=== PATIENT | female | born 1950 | race Caucasian/White ===

== ENCOUNTER → 2019-07-22 10:22 | Outpatient (CLI) | payer MEDICARE, BC ==
--- NOTE | 2019-07-23 15:34 | EC ---
PATIENT:AMIRA PEREYRA DATE OF SERVICE: 07/22/19 SEX: F MEDICAL RECORD: [id number] DATE OF : 54 [facility] AGE OF PATIENT: 68 ADMISSION DATE: 07/22/19 REFERRING PHYSICIAN: INTERPRETING PHYSICIAN: RANDI JACKSON MD ECHOCARDIOGRAM REPORT ECHO CHARGES 4 ECHO COMPLETE Date: 07/22/19 CLINICAL DIAGNOSIS: HTN/DYSPNEA ON EXERTION/ANGINA ECHOCARDIOGRAPHIC MEASUREMENTS (adult normal given) AC root (d.<3.7cm) 3.6 cm LV Septum d (<1.2 cm> 1.2 cm Valve Excursion 1.7 cm LV Septum (systole) 1.4 cm Left Atria (s.<4.0cm> 3.0 cm LVPW d(<1.2cm) 1.4 cm RV (d.<2.3cm) 3.4 cm LVPW (sytole) 1.8 cm LV diastole(<5.6CM) 3.9 cm MV E-F(>70mm/sec) cm LV systole 2.9 cm LVOT Diameter 1.6 cm MV exc.(>10mm) 1.4 cm Est.ejection fraction (50-75%) % DOPPLER: LVIT cm/sec A 830. cm/sec E 72.0 cm/sec LA cm/sec RVSP 20 mmHg LVOT 109 cm/sec AOP1/2T m/s Asc. Ao 129 cm/sec RVOT 60 cm/sec RA cm/sec PA 105 cm/sec AV Gradient Peak 6.68 mmHg AV Mean 3.58 mmHg AV Area 1.9 cm MV Gradient Peak 4.25 mmHg MV Mean 1.62 mmHg MV Area cm COMMENTS: Vehicle Care Specialist: Isabella MORAES Ripsaw Operator: 1 Dr. Jackson TAPE# PACS Pericardial Effusion N DATE OF SERVICE: 07/22/2019 ECHOCARDIOGRAM FINDINGS: 1. Left ventricular chamber size is within normal limits. Left ventricular systolic function is normal at 55% to 60%. 2. Left atrium, right atrium, and right ventricular chamber sizes are within normal limits. 3. Valvular structures have normal structure and motion. ECHOCARDIOGRAM REPORT [id number] AMIRA PEREYRA 4. Doppler interrogation reveals mild mitral regurgitation, trace tricuspid regurgitation, no other valvular insufficiency or stenosis. Pulmonary systolic pressure is normal estimated at 20 mmHg. 5. No evidence of pericardial effusion or left ventricular thrombus. TRANSINT:[id number] Voice Confirmation ID: [id number] DOCUMENT ID: [id number] RANDI JACKSON MD at 1534 CC: [id number] DICTATION DATE: 07/22/19 161 GLOBAL MARKETING OPERATIONS MANAGER: 07/22/19 1621 DEP CLI 07/22/19 [facility] [address] [place] [id number]
== END | disposition home or self-care (01) ==
LOC: D.HCCECHO 10:22
PROVIDERS: ATTEND Internal Medicine Interventional Cardiology
DX: I10 Essential (primary) hypertension (principal)

== ENCOUNTER → 2019-07-26 11:55 | Outpatient (CLI) | payer MEDICARE, BC ==
[~2019-07-26 11:55] MED LIST: AMBIEN10 MG PO; BAYER CHEWABLE81 MG PO; FAMOTIDINE10 MG PO; HYDROCHLOROTH12.5 M1 PO; LOPRESSOR25 MG PO; PLAVIX75 MG PO
--- NOTE | 2019-08-03 13:38 | ST ---
PATIENT:AMIRA PEREYRA MEDICAL RECORD: [id number] SEX: F LOCATION:[facility] ORDER #: ADMISSION DATE: 07/26/19 AGE OF PATIENT: 68 REFERRING PHYSICIAN: INTERPRETING PHYSICIAN: RANDI SAMANIEGO MD DATE OF SERVICE: 07/26/2019 INDICATIONS: Angina, hypertension, shortness of breath. She was exercised on standard Tu protocol for 9 minutes achieving greater than 85% max target heart rate response with 27 mCi of sestamibi injected at peak stress, 9 mCi used previously for rest images. FINDINGS: Gated SPECT reveals preserved ejection fraction at 83% with good wall motioning and thickening and brightening throughout all segments. SPECT Imaging: Cardiolite was used as myocardial perfusion agent. There is reversible ischemia inferiorly and apically. This includes the basal, mid, apical inferior segments as well as the apex itself. The degree of reversibility is moderate. The amount of myocardial involved is moderate. OVERALL IMPRESSION: 1. This is an intermediate to high risk nuclear stress test with a moderate amount of myocardium involved with ischemic changes inferiorly and apically. 2. Gated SPECT reveals preserved ejection fraction greater than 80%. In this patient with ongoing symptomatology, the current scan does suggest presence of hemodynamically significant coronary artery disease. TRANSINT:[id number] Voice Confirmation ID: [id number] DOCUMENT ID: [id number] RANDI SAMANIEGO MD at 1338 CC: LOREN GALVIN V [id number] DICTATION DATE: 07/27/19 1712 ELECTRON BEAM PHOTO MASK MAKER: 07/28/19 0102 DEP CLI 07/26/19 [place] [id number] [place] [id number]
[2019-08-04 09:45] VITALS: BMI 26.6
== END | disposition home or self-care (01) ==
LOC: D.HCCARDIO 11:55
PROVIDERS: ATTEND Internal Medicine Interventional Cardiology
DX: R07.9 Chest pain, unspecified (principal)

== ENCOUNTER 2019-08-04 09:14 | Outpatient (CLI) | payer MEDICARE, BC ==
[~2019-08-04] VITALS: Ht 157.5 cm; Wt 65.9 kg
--- NOTE | ~2019-08-04 | HEMODYNAMI ---
PATIENT:AMIRA PEREYRA MEDICAL RECORD: [id number] : 54 LOCATION:[facility] ADMISSION DATE: 08/04/19 Generatedon:08/04/201911:29 Patient name: AMIRA PEREYRA Patient #: [id number] : 1950 Date of study: 08/04/2019 Page: Of Hemodynamic Procedure Report Patient Data Patient Demographics Procedure consent was obtained First Name: AMIRA Gender: Female Last Name: RODDY : 1950 Patient #: [id number] Age: 68 year(s) Race: SSN: [id number] Additional ID: [id number] Contact details [address]: [address] [place] [address] [place] State: [place] City: [place] Zip code: [address] Admission Admission Data Admission Date: 08/04/2019 Admission Time: 9:14 Arrival Date: 08/04/2019 Arrival Time: 11:00 Admit Source: Other Insurance Payor: Medicare Height (in.): 62 BSA: 1.67 (m2) Height (cm.): 157.48 BMI: 26.52 (kg/m2) Weight (lbs.): 145 Weight (kg.): 65.77 Procedure Procedure Types Cath Procedure Diagnostic Procedure [facility] w/Coronaries FFR/IVUS FFR Initial Sedation Charges Moderate Sedation up to 30 minutes PCI Procedure Coronary Stent Coronary Stent Initial Procedure Description Procedure Date Procedure Date: 08/04/2019 Procedure Start Time: 11:08 Procedure End Time: 11:23 Procedure Staff Name Function Anderson Jackson MD Performing Physician Ting Lambert RT Monitor Thierry Peterson RT Scrub Jigar Bermudez RN Nurse Procedure Data Cath Procedure Fluoroscopy Diagnostic fluoroscopy Total fluoroscopy Time: 4.7 time: 4.7 min min Diagnostic fluoroscopy Total fluoroscopy dose: 517 dose: 517 mGy mGy Contrast Material Contrast Material Type Amount (ml) Isovue 300 105 Entry Location Entry Primary Successful Side Size Upsize Upsize Entry Closure Loredo ccessful Closure Location (Fr) 1 (Fr) 2 (Fr) Remarks Device Remarks Radial Right 6 Fr Mechanical artery Short Compression Estimated blood loss: 5 ml Diagnostic catheters Device Type Used For End Catheter Placement DIAGNOSTIC [place] 110cm 5 Multi-vessel Fr catheter ([id number]) Angiography Procedure Complications No complications Procedure Medications Medication Administration Route Dosage 0.9% NaCl I.V. 100 ml/hr Oxygen etCO2 Nasal cannula 2 l/min Heparin Flush Bag added to field 2 bags (1000units/500ml NS) Lidocaine 2% added to field 20 Radial Cocktail added to field 1 syringe (Verapamil 2mg/Nitro 400mcg/Heparin 1500units) Zofran I.V. 4 mg Solumedrol I.V. 125 mg Versed I.V. 1 mg Fentanyl I.V. 50 mcg Fentanyl I.V. 50 mcg Versed I.V. 1 mg Radial Cocktail I.A. 1 syringe (Verapamil 2mg/Nitro 400mcg/Heparin 1500units) Heparin Bolus I.V. 4000 units Integrilin (Bolus I.V. 6.2 ml 2mg/ml) Integrilin (Bolus wasted 3.8 ml 2mg/ml) Plavix P.O. 600 mg Hemodynamics Rest BSA: 1.67 (m2) O2 Consumption: Estimated: 154.67 (ml/min) O2 Consumption indexed : Estimated:92.62 (ml/min/m) Heart Rate: 69 (bpm) Pressure Samples Time Site Value (mmHg) Purpose Heart Use Rate(bpm) 11:10 LV 81/43,60 Snapshot 81 Snapshots Pre Cath Intra NCS Post Cath Vital Signs Time Heart Resp SPO2 etCO2 NIBP (mmHg) Rhythm Pain Sedation Rate (ipm) (%) (mmHg) Status Level (bpm) 10:45:26 68 10 98 0 124/83(105) NSR 0 (11) 10(A) , No pain 10:49:34 67 15 95 0 134/71(119) NSR 0 (11) 10(A) , No pain 10:53:44 64 17 94 26.9 115/71(91) NSR 0 (11) 10(A) , No pain 10:57:48 58 19 97 16.4 129/75(93) NSR 0 (11) 10(A) , No pain 11:02:00 57 18 98 17.9 120/64(102) NSR 0 (11) 10(A) , No pain 11:07:13 61 18 98 23.9 118/63(80) NSR 0 (11) 9(A) , No pain 11:12:22 74 14 94 15.7 99/63(91) NSR 0 (11) 9(A) , No pain 11:16:14 76 13 91 0 112/89(99) NSR 0 (11) 9(A) , No pain 11:21:09 73 19 95 29.1 112/72(99) NSR 0 (11) 10(A) , No pain Medications Time Medication Route Dose Verified Delivered Reason Not es Effectiveness by by 10:56:33 0.9% NaCl I.V. 100 Jigar Jigar Per physician ml/hr Lara Bermudez RN RN 10:56:42 Oxygen etCO2 2 l/min Jigar Jigar for low 02 sats Nasal Lorigan Lara cannula RN RN 10:56:52 Heparin Flush added 2 bags Jigar Jigar used for Bag to Lorigan Lara procedure (1000units/500ml field VALLES RN NS) 10:57:05 Lidocaine 2% added 20ml Jigar Jigar for local to vial Lorigan Lorigan anesthetic field VALLES RN 10:57:22 Radial Cocktail added 1 Jigar Jigar used for (Verapamil to syringe Lorigan Lorigan procedure 2mg/Nitro RN RN 400mcg/Heparin 1500units) 10:57:38 Zofran I.V. 4 mg Jigar Jigar for nausea Lara Bermudez RN RN 10:58:01 Solumedrol I.V. 125 mg Jigar Jigar Per physician Lara Bermudez RN RN 11:01:50 Versed I.V. 1 mg Jigar Jigar for sedation Lara Bermudez RN RN 11:01:59 Fentanyl I.V. 50 mcg Jigar Jigar for sedation Lara Bermudez RN RN 11:07:32 Fentanyl I.V. 50 mcg Jigar Jigar for sedation Lara Bermudez RN RN 11:07:39 Versed I.V. 1 mg Jigar Jigar for sedation Lara Bermudez RN RN 11:09:20 Radial Cocktail I.A. 1 Jigar Anderson for (Verapamil syringe Lara Jackson MD vasodilation 2mg/Nitro RN 400mcg/Heparin 1500units) 11:17:39 Heparin Bolus I.V. 4000 Jigar Jigar for units Lara Lara anticoagulation RN RN 11:17:56 Integrilin I.V. 6.2 ml Jigar Jigar for (Bolus 2mg/ml) Lara Lara antiplatelet RN RN therapy 11:18:31 Integrilin wasted 3.8 ml Jigar Jigar to sharp's (Bolus 2mg/ml) Lara Bermudez RN RN 11:24:17 Plavix P.O. 600 mg Jigar Jigar for Ashwiniphuc Bermudez antiplatelet RN RN therapy Procedure Log Time Note 10:25:50 Thierry Peterson RT(R) sent for patient. Start room use. 10:34:57 Diagnostic Cath Status : Elective 10:35:35 Informed consent obtained and on chart 10:35:56 Time tracking: Regular hours (M-F 7:00 - 5:00) 10:36:01 Plan of Care:Hemodynamics will remain stable., Cardiac rhythm will remain stable., Comfort level will be maintained., Respiratory function will remain adequate., Patient/ family verbilizes understanding of procedure., Procedure tolerated without complication., Recovers from procedure without complications.. 10:36:05 Patient received from Pre/Post Procedure Room to CCL 2 Alert and oriented. Tansferred to table in Supine position. 10:36:06 Warm blankets applied, and ashwini hugger turned on for patient comfort. 10:36:06 Correct patient and procedure confirmed by team. 10:36:07 ECG and BP/O2 sat monitors applied to patient. 10:44:18 Vital chart was started 10:44:19 Baseline sample Acquired. 10:44:23 Rhythm: sinus rhythm 10:44:25 Full Disclosure recording started 10:44:29 H&P Date Dictated: 08/04/2019 Within 30 days and on chart., H&P Addendum completed by physician on day of procedure. (MUST COMPLETE FOR ALL OUTPATIENTS). 10:44:31 Pre-procedure instructions explained to patient. 10:44:31 Pre-op teaching completed and patient verbalized understanding. 10:44:33 Family in waiting room. 10:44:35 Patient NPO since Midnight. 10:44:37 Is the patient allergic to Iodine/contrast media? No. 10:44:38 Was the patient premedicated? No 10:45:01 Is patient on blood thinner?No 10:45:14 Patient diabetic? No. 10:45:19 Previous problem with sedation/anesthesia? Yes nausea 10:45:20 Snore? Yes 10:45:21 Sleep apnea? Yes 10:45:22 Deviated septum? No 10:45:23 Opens mouth fully? Yes 10:45:24 Sticks out tongue? Yes 10:45:28 Airway obstruction? Yes asthma 10:45:31 Dentures? No ? 10:45:36 Pre procedure: right dorsailis pedis pulse 2+ Normal; easily identifiable; not easily obliterated 10:45:38 Pre procedure: left dorsailis pedis pulse 2+ Normal; easily identifiable; not easily obliterated 10:47:33 Patient pain scale 0/10 ?. 10:47:49 IV patent on arrival in left forearm with 0.9% NaCl at [facility]. 10:47:52 Lab results completed and on chart. 10:48:04 Right Radial & Right Groin area was prepped with chlora-prep and draped in sterile fashion 10:48:04 Alarms reviewed by R. N. 10:48:05 Sharps counted by scrub and verified by R.N. 10:56:33 0.9% NaCl 100 ml/hr I.V. was administered by Jigar Bermudez RN; Per physician; Verbal order read back and verified. 10:56:42 Oxygen 2 l/min etCO2 Nasal cannula was administered by Jigar Bermudez RN; for low 02 sats; Verbal order read back and verified. 10:56:52 Heparin Flush Bag (1000units/500ml NS) 2 bags added to field was administered by Jigar Bermudez RN; used for procedure; Verbal order read back and verified. 10:57:05 Lidocaine 2% 20ml vial added to field was administered by Jigar Bermudez RN; for local anesthetic; Verbal order read back and verified. 10:57:22 Radial Cocktail (Verapamil 2mg/Nitro 400mcg/Heparin 1500units) 1 syringe added to field was administered by Jigar Bermudez RN; used for procedure; Verbal order read back and verified. 10:57:38 Zofran 4 mg I.V. was administered by Jigar Bermudez RN; for nausea; Verbal order read back and verified. 10:58:01 Solumedrol 125 mg I.V. was administered by Jigar Bermudez RN; Per physician; Verbal order read back and verified. 11:01:14 Physician arrived 11:01:15 --------ALL STOP TIME OUT------ 11:01:15 Final Timeout: patient, procedure, and site verified with staff and physician. All members of the team are in agreement. 11:01:18 Right Radial & Right Groin site verified by team. 11:01:23 Fire Safety Assessment: A--An alcohol-based skin anteseptic being used preoperatively., C--Open oxygen or nitrous oxide is being used., D--An ESU, laser, or fiber-optic light is being used. 11:01:25 Physical assessment completed. ASA score P 2 - A patient with mild systemic disease as per Anderson Jackson MD. 11:01:50 Versed 1 mg I.V. was administered by Jigar Bermudez RN; for sedation; Verbal order read back and verified. 11:01:59 Fentanyl 50 mcg I.V. was administered by Jigar Bermudez RN; for sedation; Verbal order read back and verified. 11:03:11 2) 60-89 Mildly reduced kidney function, and other findings (as for stage 1) point to kidney disease. 11:03:31 Maximum allowable contrast dose (3.7 X eGFR X 0.75)183 ml. 11:03:34 Sedation plan: IV Moderate Sedation Medication:Versed, Fentanyl 11:03:38 Use device set Radial Dx or PCI 11:03:39 ACIST Syringe (12281) opened to sterile field. 11:03:39 Medline Cath Pack ([id number]) opened to sterile field. 11:03:39 Bag Decanter () opened to sterile field. 11:03:40 ACIST Hand Control (97317) opened to sterile field. 11:03:40 ACIST Manifold (27720) opened to sterile field. 11:03:41 Tegaderm 4 x 4 (1626W) opened to sterile field. 11:03:43 MBrace Wrist Support ([id number]) opened to sterile field. 11:03:45 SHEATH 6FR RAIN (7639928) opened to sterile field. 11:03:46 EMERALD Guide Wire (345-695) opened to sterile field. 11:07:12 Patient Height : 62 inches 11:07:24 Patient Weight : 145 lbs 11:07:32 Fentanyl 50 mcg I.V. was administered by Jigar Bermudez RN; for sedation; Verbal order read back and verified. 11:07:39 Versed 1 mg I.V. was administered by Jigar Bermudez RN; for sedation; Verbal order read back and verified. 11:08:12 Procedure started. 11:08:16 Zero performed for pressure channel P1 11:08:25 Local anesthetic to right radial artery with Lidocaine 2% by Anderson Jackson MD.INITIAL ACCESS ONLY 11:08:40 A 6 Fr Short sheath was inserted into the Right Radial artery 11:09:01 A DIAGNOSTIC [place] 110cm 5 Fr catheter (331554) was advanced over the wire and used for Multi-vessel Angiography. 11:09:20 Radial Cocktail (Verapamil 2mg/Nitro 400mcg/Heparin 1500units) 1 syringe I.A. was administered by Anderson Jackson MD; for vasodilation; Verbal order read back and verified. 11:10:17 LV hemodynamics recorded. 11:10:18 LV gram done using VU 11:10:21 Injector settings: Ml/sec: 5, Volume: 15, 11:10:30 EF : 60 % 11:10:36 LCA angiography performed. 11:10:39 Injector settings: Ml/sec: 3, Volume: 6, 11:11:48 RCA angiography performed. 11:11:50 Injector settings: Ml/sec: 3, Volume: 6, 11:11:54 Catheter removed. 11:11:55 ACCDominant side:Right 11:11:55 Proceeding to intervention. 11:12:26 GUIDE 6FR EBU 3.0 catheter ([id number]) opened to sterile field. 11:12:28 INFLATOR Merit BasixCompak (LA9083) opened to sterile field. 11:12:28 [place] Verrata Plus pressure wire (88838P) opened to sterile field. 11:12:38 6 Fr ebu 3 guide catheter was inserted over the wire 11:12:41 ACC Pre-intervention YARIEL Flow is 3. 11:13:27 FFR/IFR wire advanced. 11:13:31 Baseline FFR 1. 11:15:28 Wire advanced across lesion. 11:17:39 Heparin Bolus 4000 units I.V. was administered by Jigar Bermudez RN; for anticoagulation; Verbal order read back and verified. 11:17:56 Integrilin (Bolus 2mg/ml) 6.2 ml I.V. was administered by Jigar Bermudez RN; for antiplatelet therapy; Verbal order read back and verified. 11:18:31 Integrilin (Bolus 2mg/ml) 3.8 ml wasted was administered by Jigar Bermudez RN; to sharp's; Verbal order read back and verified. 11:19:31 pLAD lesion measured at 0.86 with IFR 11:19:32 Pre PCI Site: [place] pLAD has 70% stenosis. 11:19:37 Place stent Inflation Number: 1 A COBRA RX 3.0 X 08 Stent was prepped and advanced across the Prox LAD 70. The stent was deployed at 13 JAZLYN for 0:10 (min:sec) . 11:19:53 Stent catheter was removed intact over wire. 11:20:00 ZEPHYR REGULAR TR BAND (987485) opened to sterile field. 11:20:29 pLAD lesion measured at 1.05 with IFR 11:21:33 Post PCI Site: [place] pLAD has 0% stenosis. 11:21:47 ACC Post-intervention YARIEL Flow is 3. 11:21:50 ACT drawn and resulted at 267 seconds. (normal therapeutic range 180-240 seconds). 11:21:53 Wire removed. 11:21:53 Guide catheter removed. 11:22:00 Sheath removed intact; hemostasis achieved with Mechanical Compression to the Right Radial artery. 11:22:01 Procedure ended.(Physican Out) 11:22:10 Fluoroscopy time 04.70 minutes. 11:22:14 Flurop Dose total: 517 11:22:14 Fluoroscopy dose: 517 mGy 11:22:19 Dose Area Product 75052 mGy/cm. 11:22:23 Contrast amount:Isovue 300 105ml. 11:22:25 Sharps counted by scrub and verified by R.N. 11:22:27 [place] band inflated with 10cc of air. 11:22:30 Insertion/operative site no bleeding no hematoma. 11:22:33 Post right radial artery:stable 11:22:34 Post Procedure Pulses reassessed and unchanged 11:22:37 Post procedure rhythm: unchanged. 11:22:39 Estimated blood loss: 5 ml 11:22:40 Post procedure instruction explained to patient.Patient verbalizes understanding. 11:22:41 Patient needs reinforcement of post procedure teaching. 11:22:57 Procedure type changed to Cath procedure, Diagnostic procedure, LHC, LHC w/Coronaries, FFR/IVUS, FFR Initial, Sedation Charges, Moderate Sedation up to 30 minutes, PCI procedure, Coronary Stent, Coronary Stent Initial 11:22:58 Procedure and supply charges have been captured, reviewed, submitted and are correct. 11:23:03 Procedure Complication : No complications 11:23:05 Vital chart was stopped 11:23:05 See physician's report for complete and final results. 11:23:06 Report given to Pre/Post Procedure Room. 11:23:09 Patient transfered to Pre/Post Procedure Room with Stretcher. 11:23:11 Procedure ended. 11:23:11 Full Disclosure recording stopped 11:23:17 ACC-PCI Only Patient was given prescriptions, or instructed by Anderson Jackson MD to start/continue the following medications upon discharge: Plavix 11:23:19 End room use (Document Last) 11:23:59 Admit Source: Other 11:24:01 Arrival Date: 08/04/2019 11:00:00 AM 11:24:08 Insurance Payor : Medicare 11:24:17 Plavix 600 mg P.O. was administered by Jigar Bermudez RN; for antiplatelet therapy; Verbal order read back and verified. Intervention Summary Intervention Notes Time ActionType Lesion and Equipment Action# Pressure Duration Attributes Used 11:19:37 Place stent Prox LAD COBRA RX 1 13 00:10 3.0 X 08 Stent Device Usage Item Name Manufacture Quantity Catalog Hospital Part Current Minimal Lot# / Number Charge Number Stock Stock Serial# Code ACIST Syringe Acist 1 91748 712586 346220 295640 20 (91063) Medical Systems Inc Medline Cath Medline 1 [id number] 780833 24857 163985 5 Pack ([id number]) Bag Decanter Microtek 1 886095 57162 837483 5 () Medical Inc. ACIST Hand Acist 1 33124 180180 133123 195314 5 Control Medical (55107) Trelligence Inc ACIST Manifold Acist 1 37500 558873 727628 323281 5 (96072) Medical Systems Inc Tegaderm 4 x 4 3M 1 1626W 561458 779325 280708 5 (1626W) MBrace Wrist Advanced 1 140-0250-00 104990 57690 587796 5 Support Vascular ([id number]) Dynamics SHEATH 6FR Cardinal 1 1524186 986910 0812051 750857 5 RAIN (1599383) Health EMERALD Guide Cardinal 1 502-455 890259 294163 437114 5 Wire (502-455) Health DIAGNOSTIC Terumo 1 40-5013 152550 630519 762927 5 [place] 110cm 5 Fr catheter (639539) GUIDE 6FR EBU Medtronic 1 [id number] 974108 80533 924181 0 3.0 catheter ([id number]) INFLATOR Merit Merit 1 TL6739 204958 789142 012902 15 [facility] Medical (CS3696) [place] Windham 1 40035E 899876 776362831 929583 5 Verrata Plus pressure wire (73241O) COBRA RX 3.0 X Celonova 1 859701 [id number] 8550272 3 [id number] 08 stent Biosciences () ZEPHYR REGULAR Cardinal 1 963326 869499 7401606 521649 5 [facility] Sqrl (404276) Signature Audit [place] Stage Time Signature Unsigned Intra-Procedure 08/04/2019 Ting Lambert 11:24:46 AM RT(R) Intra-Procedure 08/04/2019 Jigar 11:28:10 AM Lara VALLES Intra-Procedure 08/04/2019 Anderson Jackson 11:29:24 AM [facility] [address] [place] [address]
[2019-08-04] MEDS ORDERED: LOPRESSOR25 MG PO (09:24)
[2019-08-04] MEDS ORDERED: HYDROCHLOROTH12.5 M1 PO (09:25)
[2019-08-04] MEDS ORDERED: FAMOTIDINE10 MG PO (09:25)
[2019-08-04] MEDS ORDERED: AMBIEN10 MG PO (09:27)
[2019-08-04 09:45] VITALS: BP 135/61; Ht 157.5 cm; Wt 65.9 kg
[2019-08-04 10:01] LABS: EOSINOPHILS 2.6 % (0-7); HEMATOCRIT 39.6 % (36.0-48.0); HEMOGLOBIN 14.4 g/dL (12-16); IMMATURE GRANULOCYTES 0.4 % (0-5); LYMPHOCYTES 40.2 % (15-50); MCHC 36.4 g/dL (31.0-37.0); MCV 90.6 fL (80.0-100.0); MONOCYTES 8.4 % (2-11); NEUTROPHILS 47.4 % (40-80); PLATELET COUNT 222 10x3/uL (130-400); RBC 4.37 10x6/uL (4.00-5.40); RDW 13.4 % (11.5-14.5)
[2019-08-04 10:34] LABS: CALCIUM 8.4 mg/dL (8.5-10.1); CARBON DIOXIDE 27.4 mmol/L (21.0-32.0); CHOL - HDL RATIO 6.1 ratio (2.3-4.1); CREATININE - SERUM 0.9 mg/dL (0.6-1.3); LDL-HDL RATIO 4.7 ratio (1.5-3.5); POTASSIUM - SERUM 4.4 mmol/L (3.5-5.1)
[2019-08-04] MEDS ORDERED: BAYER CHEWABLE81 MG PO (11:34)
[2019-08-04] MEDS ORDERED: PLAVIX75 MG PO (11:34)
--- NOTE | 2019-08-04 11:35 | NUR ---
PT RECEIVED TO RECOVERY POST PROCEDURE. PT SLEEPY BUT VERBALLY AROUSABLE. ZYPHER BAND AND IMMOBILIZER IN PLACE, DRESSING CDI NO BLEEDING OR SWELLING NOTED. ARM PINK AND WARM, CAP REFILL BRISK. PT DENIES PAIN OR DISCOMFORT. FEELS LIKE SOMETHING IS STUCK IN HER THROAT, SIPS OF WATER GIVEN. EXPLAINED IT WAS THE PLAVIX PILL GIVEN IN BACK PROBABLY. MONITORS PLACED ON PT, O2 ON AT 1L/NC. HR NSR RATE 71, BP 126/63, RR 10, O2 SAT 98. DR SAMANIEGO IN AND SPOKE WITH FAMILY. CALL LIGHT IN REACH
--- NOTE | 2019-08-04 12:00 | NUR ---
PT RESTING COMFORTABLY. Z BAND IN PLACE, DRESSING CDI NO BLEEDING OR HEMATOMA NOTED. ARM PINK AND WARM, CAP REFILL BRISK. VSS. FAMILY AT BEDSIDE, CALL LIGHT IN REACH. PT DENIES PAIN OR NEEDS
--- NOTE | 2019-08-04 12:45 | NUR ---
PT RESTING COMFORTABLY, VSS. Z BAND AND IMMOBILIZER IN PLACE. NO BLEEDING OR HEMATOMA NOTED. ARM PINK AND WARM, CAP REFILL BRISK CALL LIGHT IN REACH, FAMILY AT BEDSIDE.
--- NOTE | 2019-08-04 13:17 | NUR ---
PT RESTING COMFORTABLY, 400 CLEAR YELLOW URINE IN BEDPAN. PT REPOSITIONED FOR COMFORT. Z BAND AND IMMOBILIZER IN PLACE, DRESSING CDI NO BLEEDING OR SWELLING NOTED. CALL LIGHT IN REACH, FAMILY AT BEDSIDE.
--- NOTE | 2019-08-04 13:45 | NUR ---
Z BAND AND IMMOBILIZER IN PLACE, DRESSING REMAINS CDI NO BLEEDING OR HEMATOMA NOTED. PT AWAKE AND ALERT. SANDWICH TRAY SERVED. VSS. DENIES OTHER NEEDS. CALL LIGHT IN REACH
--- NOTE | 2019-08-04 14:28 | NUR ---
PT RESTING W EYES CLOSED. TOLERATED SANDWICH AND DRINK W/O N/V. Z BAND AND IMMOBILIZER IN PLACE, 4CC AIR REMOVED FROM Z BAND PER ORDERS W/O BLEEDING OR SWELLING NOTED. VSS. CALL LIGHT IN REACH
--- NOTE | 2019-08-04 14:53 | NUR ---
3 ADD'L CC OF AIR REMOVED FROM Z BAND W/O BLEEDING OR SWELLING NOTED. VSS. PT DENIES NEEDS
--- NOTE | 2019-08-04 15:00 | NUR ---
DISCHARGE INSTRUCTION REVIEWED W PT AND , ALSO DISCUSSED THE IMPORTANCE OF GETTING THE PLAVIX FILLED AND STARTING IT AND THE ASPRIN TOMORROW. 1505 IV REMOVED W CATH INTACT, MONITORS REMOVED AND PT UP TO DRESS FOR DISCHARGE
--- NOTE | 2019-08-04 15:20 | NUR ---
Z BAND AND REMAINING AIR REMOVED, NO BLEEDING OR SWELLING NOTED. 2/2 AND TEGADERM DRESSING APPLIED ALONG W IMMOBILIZER. PT DISCHARGED TO IN PRIVATE VEHICLE WITH ALL BELONGINGS AND DISCHARGE PAPERWORKL
--- NOTE | 2019-08-05 09:14 | OP ---
PATIENT NAME: AMIRA PEREYRA MEDICAL RECORD: [id number] :54 LOCATION:[facility] ADMISSION DATE: SURGEON: RANDI SAMANIEGO MD DATE OF OPERATION: 08/04/2019 PROCEDURES: 1. PTCA and stent LAD. 2. IFR. 3. Left heart catheterization. 4. Selective coronary angiography. 5. Left ventriculogram. INDICATIONS: Angina and coronary artery disease. PROCEDURE IN DETAIL: After informed consent was obtained and after a detailed description of risks, benefits as well as alternative therapies, the patient elected to proceed with angiogram and angioplasty. The right radial area was prepped and draped in normal sterile fashion. Right radial artery was cannulated via modified Seldinger technique with placement of 6-Arabic sheath. All catheters exchanged through the sheath. FINDINGS: Left ventriculogram was performed in standard 30-degree VU view, reveals good cardiac wall motion, ejection fraction estimated at 60%. SELECTIVE CORONARY ANGIOGRAPHY: 1. Left main is with no significant angiographic disease. 2. Left anterior descending has a questionable 70% stenosis proximally. IFR was abnormal at 0.86. 3. Left circumflex has moderate irregularities but no flow-limiting stenosis. 4. Right coronary has moderate irregularities but no flow-limiting stenosis. PTCA AND STENT OF THE LAD: The stent used was a 3.0 x 8 mm Cobra. Result was 0% residual stenosis and IFR normalized after the procedure to greater than 1. OVERALL IMPRESSION: Successful percutaneous transluminal coronary angioplasty and stent of the left anterior descending going from 70% initial stenosis with an initial abnormal IFR of 0.86 to 0% residual stenosis with a normalized IFR greater than 1.0. TRANSINT:[id number] Voice Confirmation ID: [id number] DOCUMENT ID: [id number] RANDI SAMANIEGO MD at 0914 CC: [id number] DICTATION DATE: 08/04/19 1130 QUANTITATIVE DEVELOPER: 08/04/192000 [facility] CLI 08/04/[address] [id number]
== END 2019-08-04 15:20 | disposition home or self-care (01) ==
LOC: D.CATH 09:14
PROVIDERS: ATTEND Internal Medicine Interventional Cardiology
DX: I25.119 Atherosclerotic heart disease of native coronary artery with unspecified angina pectoris (principal)